=== PATIENT | female | born 1990 | race Caucasian/White ===

== ENCOUNTER 2018-05-08 18:41 | Emergency (ER) | payer MEDICAID ==
[~2018-05-08] VITALS: Ht 157.5 cm; Wt 75.0 kg
[~2018-05-08 18:41] MED LIST: PROCHC RC
[2018-05-08 18:53] VITALS: BP 100/55
[2018-05-08] MEDS ORDERED: acetaminophen 325mg tablet PO ONE (19:00)
[2018-05-08] MEDS ORDERED: ibuprofen tablet 400 MG TABLET PO ONE (20:55)
== END 2018-05-08 21:42 | disposition left against medical advice (07) ==
LOC: ER 18:42
DX: R50.9 Fever, unspecified (principal); Z53.21 Procedure and treatment not carried out due to patient leaving prior to being seen by health care provider

== ENCOUNTER 2020-11-29 03:48 | Emergency (ER) | payer MEDICAID ==
[~2020-11-29] VITALS: Ht 157.5 cm; Wt 65.0 kg
[2020-11-29] MEDS ORDERED: SULF1TAB45 PO (09:32)
[2020-11-29 11:07] VITALS: BP 116/72
== END 2020-11-29 11:09 | disposition home or self-care (01) ==
LOC: ER 03:49
DX: L02.412 Cutaneous abscess of left axilla (principal); Z86.14 Personal history of Methicillin resistant Staphylococcus aureus infection; Z88.1 Allergy status to other antibiotic agents; Z88.8 Allergy status to other drugs, medicaments and biological substances; Z79.2 Long term (current) use of antibiotics; Z79.899 Other long term (current) drug therapy
CPT/HCPCS: 10060; 99283

== ENCOUNTER 2024-02-23 09:40 | Emergency (ER) | payer MEDICAID ==
[~2024-02-23] VITALS: Ht 157.5 cm; Wt 75.9 kg
[2024-02-23] MEDS: ondansetron 4mg rapidly disintigrating tab PO ONE (10:41)
[2024-02-23] MEDS ORDERED: ONDA-245 PO (11:57)
[2024-02-23 12:03] VITALS: BP 130/78; PULSE 88; RESP 17; TEMP 97.9; O2SAT 99
== END 2024-02-23 12:03 | disposition home or self-care (01) ==
LOC: ER 09:40
DX: S02.2XXA Fracture of nasal bones, initial encounter for closed fracture (principal); S00.81XA Abrasion of other part of head, initial encounter; S09.8XXA Other specified injuries of head, initial encounter; Z88.0 Allergy status to penicillin; Z88.1 Allergy status to other antibiotic agents; Z79.899 Other long term (current) drug therapy; W18.39XA Other fall on same level, initial encounter; Y93.89 Activity, other specified; Y92.89 Other specified places as the place of occurrence of the external cause; Y99.8 Other external cause status
CPT/HCPCS: 70450; 70486; 99284